=== PATIENT | female | born 1990 | race Caucasian/White ===

== ENCOUNTER 2022-11-14 09:20 | Inpatient (IN) | payer OTHER, SELFPAY ==
--- NOTE | 2022-11-05 10:23 | PCM.HP.BLA ---
History and Physical Date of Admission: 11/14/22 HPI: The patient is a 31 year old female presenting for pre-operative visit. She is scheduled for and bilateral salpingectomy, for sterilization and previous c/s on 11/14/22. Procedure discussed along with risks, benefits and complications. Other alternatives discussed for management. Consent form signed? Yes. ? ? PAST MEDICAL HISTORY PAST MEDICAL HISTORY Diagnosis Date ? Abnormal Pap smear of cervix ? ? Gestational hypertension ? ? ? PAST SURGICAL HISTORY PAST SURGICAL HISTORY Procedure Laterality Date ? SECTION HX ? ? ? x2 ? ? ? CURRENT MEDICATIONS Current Outpatient Medications Medication Sig Dispense Refill ? vit 89-xexi-isbhh-dha (PRENATE MINI, FERR ASP GLYCIN,) 18-1-350 mg cap Take 1 Dose by mouth once daily. 30 capsule 12 ? No current facility-administered medications for this visit. ? ? ALLERGIES: Patient has no known allergies. ? PERSONAL HISTORY: SOCIAL HISTORY Social History ? Tobacco Use ? Smoking status: Former ? ? Types: Cigarettes ? ? Quit date: 02/05/2022 ? ? Years since quittin.7 ? Smokeless tobacco: Never Vaping Use ? Vaping Use: Never used Substance Use Topics ? Drug use: Never ? FAMILY HISTORY: FAMILY HISTORY FAMILY HISTORY Problem Relation Age of Onset ? Heart Attack Mother ? ? No Known Problems Father ? ? other (IUFD) Sister ? ? No Known Problems Sister ? ? No Known Problems Sister ? ? No Known Problems Brother ? ? Cancer Maternal Grandmother ? ? Colon Cancer Maternal Grandfather ? ? Heart Paternal Grandmother ? ? COPD Paternal Grandmother ? ? Cancer Paternal Grandfather ? ? No Known Problems Son ? ? No Known Problems Daughter ? ? ? REVIEW OF SYMPTOMS: GENERAL: denies fevers or chills ENDOCRINOLOGY: has not been on steroids Cardiology : denies palpitations or chest pain Respiratory: denies SOB or cough Hematology: denies history of prolonged bleeding or easy bruising or VTE Allergy: Denies history of personal or family history of allergy to anesthesia ? PHYSICAL EXAMINATION: ? VITALS: Last menstrual period 02/14/2022. ? GENERAL: The patient is well nourished, well hydrated in no acute distress. , The patient is oriented to time, place, and person. NECK: Supple. No lynphadenopathy, normal thyroid, no thyromegaly. LUNGS: Clear to auscultation bilaterally. no wheezes, rhonchi or rales HEART: Regular rate and rhythm, Normal heart sounds, and No murmurs or gallops abd- soft, non tender, gravid ? IMPRESSION: Estimated Date of Delivery: 11/21/22 ? PLAN: The risks/benefits/alternatives and personal involved for the planned repeat c/s and tubal sterilization were reviewed with the patient. Her questions were answered to her satisfaction and she desires to proceed. Consent was signed. I reviewed with her postop instructions and expectations. ? ? I have reviewed and updated past medical and surgical history, medications and allergies Assessment & Plan Assessment/Plan (1) Sterilization: (2) Previous delivery affecting : (3) 39 weeks gestation of :
[2022-11-14] VITALS (15 sets, daily range): BP systolic 85–131; BP diastolic 42–82; PULSE 51–78; RESP 12–16; TEMP 35.7–36.6; O2SAT 97–98; BMI 31.8
[2022-11-14] MEDS: Lactated Ringers 1,000 ML 999 ML IV (10:00)
[2022-11-14 10:18] LABS: Absolute Lymphocyte Count 1.36 X10^3/uL (0.83-4.51); Absolute Neutrophil Count 6.7 X10^3/uL (2.0-7.7); Basophil# 0.03 X10^3/uL; Basophil% 0.3 % (0-1); Eosinophil# 0.09 X10^3/uL; Hematocrit 36.1 % (37-47); Hemoglobin 11.7 g/dL (12.0-15.0); Lymphocyte # 1.36 X10^3/ul (0.83-4.51); Lymphocyte % 15.2 % (19-41); Mean Corp Hgb Conc 32.4 g/dL (32-36); Mean Corpuscular Hgb 29.3 pg (27.0-32.0); Mean Corpuscular Volume 90.5 fL (81-99); Mean Platelet Vol. 11.7 fl (6.2-12.0); Monocyte# 0.74 X10^3/uL; Monocyte% 8.3 % (0-10); NRBC Flagged by Analyzer 0 % (0-5); Neutrophil # 6.67 X10^3/uL (2.7-7.7); Neutrophil % 74.8 % (47-70); Platelet Count 203 K/mm3 (150-450); RBC Distribution Width CV 12.9 % (11.6-14.6); RBC Distribution Width SD 41.8 fl (35.1-43.9); Red Blood Count 3.99 M/mm3 (4.2-5.4); White Blood Count 8.9 K/mm3 (4.4-11.0)
[2022-11-14 11:01] LABS: Syphilis Antibodies Non-reactive
[2022-11-14] MEDS: Acetaminophen 500 MG Tablet 1000 MG PO ×3 (11:11→22:52)
[2022-11-14] MEDS: Lactated Ringers 1,000 ML 150 ML IV (11:13)
[2022-11-14] MEDS: Sodium Citrate/Citric Acid 30 ML UDC PO (12:07)
[2022-11-14] MEDS: Cefazolin 2 GM in 0.9% Normal Saline 100 ML IV (12:11)
--- NOTE | 2022-11-14 12:17 | OP.PCM_ITS ---
Assessment & Plan (1) 39 weeks gestation of : (2) Previous delivery affecting : (3) Sterilization: Maternal Data Information Final NICOL: 11/21/22 Final NICOL Source: US <20 weeks Gestational age: 39 0/7 Details Operative Information Date of Procedure: 11/14/22 Pre-Operative Diagnosis: 39 weeks Post-Operative Diagnosis: same Indications for : Repeat Elective and Desires elective sterilization Classification: Scheduled Procedure Type: low transverse (with bilateral salpingectomy) grid caster #1: Catarino Wheeler Type of Anesthesia: Spinal Anesthesiologist: Luis Jacques Special Medications: duramorph Antibiotic Given: Ancef 2 grams IV x1 Drain: Nolasco to straight drain Estimated Blood Loss: 600 Fluids Replaced: 800 Procedure Start Time: 12:30 Procedure Stop Time: 12:59 Time of Delivery: 12:33 Findings Description of Procedure: The patient was taken to the operating room. She was prepped and draped in the dorsal supine position with a leftward tilt. A Pfannenstiel skin incision was made approximately 2 cm above the symphysis pubis and carried through to unde rlying layer fascia with the scalpel. The fascia was incised incised in the midline and extended laterally with the Brown scissors. The fascia was dissected off the rectus muscles with blunt and sharp dissection. The rectus muscles were in the midline and the peritoneum was entered bluntly. The peritoneal incision was stretched and the bladder blade was placed. The uterine incision was made in a low transverse fashion with the scalpel and extended superiorly and inferiorly with blunt dissection. The amniotic membranes were ruptured bluntly and clear amniotic fluid returned. The 's head was brought to the incision and was not easily be able to be delivered because it kept extending. The vacuum was placed on the flexion point and vacuum created 550 mmHg. Pulled with 1 pull with fundal pressure and the head delivered easily in less than 15 seconds. There were no pop offs and the vacuum was removed. The remainder of the was delivered with gentle traction and fundal pressure in the standard fashion. The mouth and nares were bulb suctioned. The cord was clamped and cut as the infant was stimulated. Cord clamping was delayed. The infant was handed off to the waiting nursing staff. The placenta was delivered with fundal massage and gentle traction in the standard fashion. The uterus was exteriorized and cleared of all clots and debris. The cervix was dilated with a ring forcep. The uterine incision was closed with #1 Vicryl in a running locked fashion. The incision was examined and was found to be hemostatic. The uterus was placed back into the peritoneal cavity and hemostasis was again confirmed. The left fallopian tube was identified and followed out to the fimbriated end. The LigaSure device was used to clamp, seal and transect the antimesenteric portion of the tube. The LigaSure device was then used to transect the tube off of the uterine cornua. Same procedure was performed on the contralateral side and excellent hemostasis was noted. The uterine incision was reexamined and found to be hemostatic. The rectus muscles were examined and any bleeding was Bovie cauterized. The parietal peritoneum and rectus muscles were closed en bloc with an 0 Vicryl running suture. The surgical teams outer gloves were then changed. The rectus fascia was examined and any bleeding was Bovie cauterized and the rectus fascia was closed with 1 Vicryl suture in a running standard fashion. The subcutaneous tissue was examining and any bleeding was Bovie cauterized. The subcutaneous tissue was reapproximated with 3-0 Vicryl suture. The skin was closed in a subcuticular fashion by the CAPACITY PLANNING ANALYST with me present in the labor and delivery suite. I performed the remainder of the procedure with assistance. All sponge, lap, and needle counts were correct. The patient was taken to her room for recovery in a stable condition. Presentation: Positive for Vertex Amniotic Membrane Rupture Type: Artificial Amniotic Fluid Description: Clear Placental Delivery Description: Expressed Placenta Disposition: [facility] Specimen(s) Sent to Pathology: bilateral fallopian tubes Cord Vessel Description: 3 Vessels Cord Entanglement: Around neck x 1, loose Nuchal Cord Compression: Without compression A Gender: Female (Ekyana) (1 minute): 8 (5 minute): 8 Delayed Cord Clamping: Yes Complications Complications: none
--- NOTE | 2022-11-14 12:33 | FALS_PTH ---
PATIENT: DERRICK GAVIN LOC: [facility] U#:[id number] AGE/SX: 32/F ROOM: WP008 RE11/14/[address]: Dr. Rosalie Tate MD : 1990 BED: 1 DIS: 11/15/2022 SPEC #: [id number] RECD: 11/14/22 14:25 STATUS: POLLY CONNER #: [id number] RANDA: 11/14/22 12:[address]: Rosalie Tate DEPT: SURGICAL PATHOLOGY RECD BY: Halie Saldana ENTERED: 11/17/22 08:41 SP TYPE: FALL TUBES OTHR DR: No Primary Care Phys Tissues: Fallopian tube Procedures: Surgery Specimen Level II HEADER OPERATION: Tubal ligation PRE-OP DIAGNOSIS: Sterilization TISSUE SUBMITTED: Fallopian tubes, stitch in right tube MICROSCOPIC DIAGNOSIS Right fallopian tube, salpingectomy: No pathologic change. Left fallopian tube, salpingectomy: No pathologic change. AM:enrrique 11/18/2022 MICROSCOPIC DESCRIPTION Slides are reviewed. GROSS DESCRIPTION Received in fixative is one container labeled with the patient's name and designated bilateral fallopian tubes, right suture. The specimen consists of bilateral fallopian tubes including fimbrial ends. The right fallopian tube measures 5.0 cm in length and 1.0 cm in diameter and left fallopian tube measures 6.5 cm in length and 0.6 cm in diameter. Sections reveal unremarkable cut surfaces. Deck Steward sections are submitted in two cassettes as follows: 1 - right fallopian tube, 2 - left fallopian tube. / SJ:enrrique 11/17/2022 TC:4 CPT: 77737 x2
[2022-11-14] MEDS: Oxytocin 15 Units/NS 250ml 15 UNITS/250 ML IV.SOLN 83 UNITS IV (13:10)
[2022-11-14] MEDS: Ketorolac 30 MG/ML Syringe IV ×2 (13:40→19:41)
[2022-11-14 14:24] LABS: Pathology Specimen OB SEE PATHOLOGY REPORT
[2022-11-14] MEDS: Lactated Ringers 1,000 ML 100 ML IV (16:46)
[2022-11-15 00:05] VITALS: BP 108/52; PULSE 56; RESP 15; O2SAT 95
[2022-11-15] MEDS: Ketorolac 30 MG/ML Syringe IV ×2 (01:44→07:43)
[2022-11-15] MEDS: 0.9% Saline Lock 10 ML Syringe IV ×2 (01:44→07:44)
[2022-11-15] MEDS: Acetaminophen 500 MG Tablet 1000 MG PO ×2 (04:50→10:49)
[2022-11-15 04:52] VITALS: BP 105/44; PULSE 54; RESP 14; TEMP 36.4; O2SAT 97
[2022-11-15 06:19] LABS: Hematocrit 29.4 % (37-47); Hemoglobin 9.7 g/dL (12.0-15.0); Mean Corpuscular Hgb 29.6 pg (27.0-32.0); Mean Corpuscular Volume 89.6 fL (81-99); Mean Platelet Vol. 11.5 fl (6.2-12.0); Platelet Count 158 K/mm3 (150-450); RBC Distribution Width CV 12.9 % (11.6-14.6); RBC Distribution Width SD 42.3 fl (35.1-43.9); Red Blood Count 3.28 M/mm3 (4.2-5.4); White Blood Count 9.6 K/mm3 (4.4-11.0)
[2022-11-15 07:45] VITALS: BP 109/65; PULSE 61; RESP 18; TEMP 36.3; O2SAT 98
--- NOTE | 2022-11-15 10:07 | PCM.PN.OB ---
Subjective Subjective Pain well controlled. Average lochia. No nausea or vomiting. She denies headache or visual changes. Tolerating regular diet. Objective Data Objective Data Vital Signs: Vital Signs Temp Pulse Resp BP Pulse Ox O2 Del Method 97.3 F L 61 18 109/65 98 Room Air 11/15/22 07:45 11/15/22 07:45 11/15/22 07:45 11/15/22 07:45 11/15/22 07:45 11/15/22 07:45 Oxygen Delivery Method Room Air Weight: 76.294 kg Body Mass Index (BMI) 31.8 Intake & Output: Intake and Output for Last 24 Hours 11/13/22 11/14/22 11/15/22 23:59 23:59 23:59 Intake Total 2158.33 / 2158.33 Output Total 1100 / 1100 1200 / 1200 Balance 1058.33 / 1058.33 -1200 / -1200 Lab / Micro Data 11/15/22 06:04 Labs: Laboratory Results - last 24 hr 11/14/22 10:00: WBC 8.9, RBC 3.99 L, Hgb 11.7 L, Hct 36.1 L, MCV 90.5, MCH 29.3, MCHC 32.4, RDW Std Deviation 41.8, RDW Coeff of Domenic 12.9, Plt Count 203, MPV 11.7, Immature Gran % (Auto) 0.400, Neut % (Auto) 74.8 H, Lymph % (Auto) 15.2 L, [place] % (Auto) 8.3, Eos % (Auto) 1.0, Baso % (Auto) 0.3, Absolute Neuts (auto) 6.7, Absolute Lymphs (auto) 1.36, Nucleated RBC % 0, Syphilis Total Ab Non-reactive, Blood Type B POSITIVE, Antibody Screen NEGATIVE 11/15/22 06:04: WBC 9.6, RBC 3.28 L, Hgb 9.7 L, Hct 29.4 L, MCV 89.6, MCH 29.6, MCHC 33.0, RDW Std Deviation 42.3, RDW Coeff of Domenic 12.9, Plt Count 158, MPV 11.5 Physical Exam Const alert General Appearance: cooperative GI GI Narrative: soft, moderate distention, fundus firm, appropriately tender. Abdominal bandage clean dry and intact Assessment & Plan (1) delivery delivered: PLAN: Postoperative day #1 status post repeat section and bilateral salpingectomy. Patient is doing well. is doing well. Patient is bottlefeeding. Patient desires discharge home today.
--- NOTE | 2022-11-15 10:11 | DS.PCM_ITS ---
Providers Date of Admission: 11/14/22 Primary Care Physician: No Primary Care Phys Reason For Visit: REPEAT C SECTION Diagnosis Discharge Diagnosis (1) delivery delivered: Status: Acute Code(s): O82 - Encounter for delivery without indication Plan: Postoperative day #1 status post repeat section and bilateral salpingectomy. Patient is doing well. is doing well. Patient is bottlefeeding. Patient desires discharge home today. Medications at Discharge Home Medications vit no.133-ferrous fumarate 28 mg-folic acid 800 mcg tablet () tab PO 11/14/22 ibuprofen 600 mg tablet 600 mg PO Q6H PRN Pain 20 days #60 TABLETS 11/15/22 Hospital Course Operations - (Repeat section with bilateral salpingectomy) Procedures None Summary of Care Provided Minutes Spent on Discharge: 15 Hospital Course: 32-year-old female admitted for repeat section and bilateral salpingectomy. This was performed on 11/15/2022 without difficulty. By postoperative day #1 she was ambulating, urinating tolerating regular diet and desired discharge home. was bottlefeeding and doing well. Weight / BMI Weight Weight: 76.294 kg Body Mass Index (BMI) 31.8 ABG / Lab / Microbiology Data 11/15/22 06:04 Laboratory: Laboratory Results - last 24 hr 11/14/22 10:00: WBC 8.9, RBC 3.99 L, Hgb 11.7 L, Hct 36.1 L, MCV 90.5, MCH 29.3, MCHC 32.4, RDW Std Deviation 41.8, RDW Coeff of Domenic 12.9, Plt Count 203, MPV 11.7, Immature Gran % (Auto) 0.400, Neut % (Auto) 74.8 H, Lymph % (Auto) 15.2 L, [place] % (Auto) 8.3, Eos % (Auto) 1.0, Baso % (Auto) 0.3, Absolute Neuts (auto) 6.7, Absolute Lymphs (auto) 1.36, Nucleated RBC % 0, Syphilis Total Ab Non- reactive, Blood Type B POSITIVE, Antibody Screen NEGATIVE 11/15/22 06:04: WBC 9.6, RBC 3.28 L, Hgb 9.7 L, Hct 29.4 L, MCV 89.6, MCH 29.6, MCHC 33.0, RDW Std Deviation 42.3, RDW Coeff of Domenic 12.9, Plt Count 158, MPV 11.5 Meaningful Use Info Meaningful Use Diagnoses (Choose all that apply): None applicable Discharge Plan Admission Admit Date/Time: 11/14/22 09:20 Primary Reason for Your Visit: and tubal Attending Provider: Rosalie Tate Primary Care Provider: Care Physician,No Primary Discharge Orders/Prescriptions Prescriptions: New ibuprofen [ibuprofen] 600 mg tablet 600 mg PO Q6H PRN (Reason: Pain) 20 Days Qty: 60 1RF Continued 28-800 mg-mcg tablet PO Referrals / Follow Up: Care Physician,No Primary [Primary Care Provider] - Disposition Disposition (needs filled in before D/C Order can be placed): Home, Self Care
[2022-11-15] MEDS: Senna/Docusate Sodium 1 Tablet PO (10:49)
[2022-11-15 12:45] VITALS: BP 118/47; PULSE 56; RESP 16; TEMP 36.3; O2SAT 97
[2022-11-15] MEDS: Ibuprofen 600 MG Tablet PO (14:34)
== END 2022-11-15 15:00 | disposition home or self-care (01) | DRG 785 ==
PROVIDERS: Admitting Provider Obstetrics & Gynecology; Referring Provider Obstetrics & Gynecology; Visit Provider Obstetrics & Gynecology
PROC: 10D00Z1 Extraction of Products of Conception, Low, Open Approach (ICD-10-PCS; CPT 59514; principal; 2022-11-14 11:45)
DX: O34.219 Maternal care for unspecified type scar from previous cesarean delivery (principal); O69.2XX0 Labor and delivery complicated by other cord entanglement, with compression, not applicable or unspecified; Z37.0 Single live birth; Z30.2 Encounter for sterilization; Z3A.39 39 weeks gestation of pregnancy; Z87.891 Personal history of nicotine dependence
CPT/HCPCS: 59025; 59050; 85025; 85027; 86780; 86850; 86900; 86901; 88302; 99221; J7120; A4216; G0378; J2405